=== PATIENT | male | born 1990 | race African-American/Black ===

== ENCOUNTER 2022-11-28 03:02 | Emergency (ER) | payer OTHER ==
[2022-11-28 03:19] VITALS: BP 117/80; PULSE 63; RESP 20; TEMP 98; BMI 22.9
[2022-11-28] MEDS ORDERED: ACETAMINOPHEN 325 MG TABLET (FP) PO ONE (03:42)
[2022-11-28] MEDS ORDERED: ACETAMINOPHEN 325 MG TABLET (FP) ONE (03:47)
== END 2022-11-28 06:15 | disposition home or self-care (01) ==
LOC: JER 03:02
DX: M79.671 Pain in right foot (principal); M79.672 Pain in left foot
CPT/HCPCS: 99283-25